=== PATIENT | male | born 1990 | race Caucasian/White ===

== ENCOUNTER 2018-06-05 12:29 | Outpatient (CLI) ==
[2012-08-07 22:10] VITALS: TEMP 98.7
[2018-01-14 16:37] VITALS: BMI 39.3
== END 2018-06-05 12:30 | disposition home or self-care (01) ==
LOC: RHC-LAB 12:29
PROVIDERS: ATTEND Nurse Practitioner Family
DX: J02.9 Acute pharyngitis, unspecified (principal)
CPT/HCPCS: 87651

== ENCOUNTER 2018-07-12 15:22 | Outpatient (CLI) ==
[2012-08-07 22:10] VITALS: TEMP 98.7
[2018-01-14 16:37] VITALS: BMI 39.3
== END 2018-07-12 15:23 | disposition home or self-care (01) ==
LOC: RHC-LAB 15:22
PROVIDERS: ATTEND Nurse Practitioner Family
DX: E66.9 Obesity, unspecified (principal); R94.5 Abnormal results of liver function studies
CPT/HCPCS: 36415; 85025